=== PATIENT | female | born 1975 | race Caucasian/White ===

== ENCOUNTER 2018-07-30 18:54 | Emergency (ER) | payer MEDICAID, OTHER ==
[2018-07-30] MEDS ORDERED: Norco 10/325 MG Tablet PO ONE (19:14)
--- NOTE | 2018-07-30 19:22 | ERPHSYRPT ---
- History of Present Illness Time Seen by Provider: 07/30/18 19:05 Source: patient Exam Limitations: clinical condition Physician History: PATIENT STATES AFTER PLACING RIGHT HAND TO CLEAN GLASS MUG SUSTAINED LACERATION TO RIGHT FINGER UPON BREAKING GLASS. DENIES NUMBNESS, TINGING IN DIGIT. Occurred: just prior to arrival Method of Injury: incised Quality: constant Severity of Pain-Max: moderate Severity of Pain-Current: moderate Extremities Pain Location: 5th finger: right Modifying Factors: Improves With: movement Associated Symptoms: none Allergies/Adverse Reactions: No Known Drug Allergies Allergy (Verified 08/07/15 09:19) Hx Tetanus, Diphtheria Vaccination/Date Given: No Hx Influenza Vaccination/Date Given: No Hx Pneumococcal Vaccination/Date Given: No - Review of Systems Constitutional: No Symptoms Musculoskeletal: Injury, Joint Pain, Joint Swelling - Past Medical History Pertinent Past Medical History: No Neurological History: No Pertinent History ENT History: No Pertinent History Cardiac History: No Pertinent History Respiratory History: No Pertinent History Endocrine Medical History: No Pertinent History Musculoskeletal History: No Pertinent History GI Medical History: No Pertinent History History: No Pertinent History Psycho-Social History: No Pertinent History Female Reproductive Disorders: Other - Past Surgical History Past Surgical History: Yes Neuro Surgical History: No Pertinent History Cardiac: No Pertinent History Respiratory: No Pertinent History Gastrointestinal: No Pertinent History Genitourinary: No Pertinent History Musculoskeletal: No Pertinent History Female Surgical History: Section Other Surgical History: PRECLAMPSIA WIHT - Social History Smoking Status: Current every day smoker How long have you smoked: 15 Exposure to second hand smoke: Yes Drug Use: none Patient Lives Alone: No - Female History Hx Now: No - Nursing Vital Signs Nursing Vital Signs: Initial Vital Signs Temperature 98.0 F 07/30/18 19:09 Pulse Rate 80 07/30/18 19:09 Respiratory Rate 17 07/30/18 19:09 Blood Pressure 152/97 07/30/18 19:09 O2 Sat by Pulse Oximetry 100 07/30/18 19:09 Pain Scale Pain Intensity 6 - Physical Exam General Appearance: no apparent distress Hand Exam: laceration (THERE IS A L-SHAPED 3CM LACERATION DORSUM RIGHT 5TH MCP JOINT RADIAL ASPECT, THERE IS FULL RANGE OF MOTION MCP,PIP AND DIP JOINTS, SENSATION INTACT TO LIGHT TOUCH AND PINPRICK), soft tissue tenderness (NO EVIDENCE OF FOREIGN BODY OR TENDON INVOLVEMENT) SpO2 Interpretation: normal SpO2: 98 Procedures - Laceration/Wound Repair Right Finger Wound Location: Right (5TH METACARPAL) Wound Length (cm): 3 Wound's Depth, Shape: flap Wound Explored: clean Irrigated: Yes Hibiclens Prep: Yes Anesthesia: local, 2% Lidocaine Volume Anesthetic (ccs): 6 Wound Repaired With: sutures Suture Size/Type: 4-0, ethilon Number of Sutures: 9 Layer Closure?: No Sterile Dressing Applied?: Yes Splint Applied?: Yes Type of Splint Applied: ALUMINUM FINGER SPLINT - Radiology Exams Right Hand X-ray Interpretation: Interpreted by me (NO EVIDENCE OF FRACTURE OR RADIO-PAQUE FOREIGN BODY) Ordered Tests: Active Orders 24 hr Category Date Time Status HAND (MINIMUM 3 VIEWS) Stat Exams 07/30/18 19:15 Taken Medication Summary Discontinued Medications Generic Name Dose Route Start Last Admin Trade Name Freq PRN Reason Stop Dose Admin Hydrocodone Bitart/Acetaminophen 1 tab 07/30/18 19:14 07/30/18 19:34 [place] 10/325 Mg Tablet PO 07/30/18 19:15 1 tab STAT ONE Administration Hydrocodone Bitart/Acetaminophen Confirm 07/30/18 19:33 [place] 10/325 Mg Tablet Administered 07/30/18 19:34 Dose 1 tab .ROUTE .STK-MED ONE Cephalexin HCl 500 mg 07/30/18 20:15 Keflex 500 Mg PO 07/30/18 20:16 STAT ONE Diphtheria/Tetanus/Acell Pertussis 0.5 ml 07/30/18 19:45 07/30/18 19:46 Adacel Vial IM 07/30/18 19:46 0.5 ml .ONCE ONE Administration Lidocaine HCl 5 ml 07/30/18 19:58 Xylocaine 2% Hcl 20 Ml Mdv IJ 07/30/18 19:59 STAT ONE - Progress Progress: improved, pain not gone completely Progress Note: 07/30/18 20:19 ADMINISTERED ADACEL 0.5ML IM, KEFLEX 500MG, AND NORCO 10/325 ORALL, APPLICATION DRESSING AND FINGER SPLINT Counseled pt/family regarding: diagnosis, need for follow-up - Departure Departure Disposition: Home Clinical Impression: LACERATION RIGHT INDEX FINGER Condition: Stable Critical Care Time: No Referrals: SIDNEY WARE MD [Primary Care Provider] - Additional Instructions: MAINTAIN ALUMINUM FINGER SPLINT FOR 10 DAYS THEN REMOVE. MAY REMOVE 2-3 TIMES DAILY TO CLEANSE WITH SOAP AND WATER. WATCH FOR SIGNS OF INFECTION REDNESS, SWELLING OR DRAINAGE. TORADOL 10MG EVERY 6 HOURS FOR PAIN NEEDED. ANTIBIOTIC KEFLEX 500MG EVERY 8 HOURS FOR 10 DAYS. HAVE STITCHES REMOVED AT 10 DAYS. Prescriptions: Ketorolac Tromethamine [Toradol] 10 mg PO Q6H PRN PRN #20 tablet PRN Reason: Pain Cephalexin Mh 500 mg [Keflex 500 mg] 500 mg PO TID #30 capsule
[2018-07-30] MEDS ORDERED: Norco 10/325 MG Tablet ONE ×2 (19:33→20:17)
[2018-07-30] MEDS ORDERED: Adacel Vial IM ONE (19:45)
[2018-07-30] MEDS ORDERED: XYLOCAINE 2% HCL 20 ML MDV IJ ONE (19:58)
[2018-07-30] MEDS ORDERED: KEFLEX 500 MG PO ONE (20:15)
[2018-07-30] MEDS ORDERED: NORCO 5/325 MG PO ONE (20:16)
[2018-07-30] MEDS ORDERED: NORCO 5/325 MG ONE (20:22)
[2018-07-30] MEDS ORDERED: KEFLEX 500 MG ONE (20:22)
[2018-07-30 20:32] VITALS: BP 123/95; PULSE 70; O2SAT 97
--- NOTE | 2018-07-31 08:40 | XRAY ---
Indication: Laceration following injury. Comparison: None 3 views of the right hand demonstrates laceration adjacent to the 5th MCP. No other bony, articular, or soft tissue abnormalities.
== END 2018-07-30 20:45 | disposition home or self-care (01) ==
LOC: ED 18:54
DX: S61.210A Laceration without foreign body of right index finger without damage to nail, initial encounter (principal); W25.XXXA Contact with sharp glass, initial encounter
CPT/HCPCS: 12002; 73130; 90471; 90715; 99284; A9270-GY

== ENCOUNTER 2020-12-04 15:52 | Emergency (ER) | payer OTHER ==
--- NOTE | 2020-12-04 17:34 | ERPHSYRPT ---
- History of Present Illness Time Seen by Provider: 12/04/20 16:20 Source: patient Exam Limitations: no limitations Patient Subjective Stated Complaint: pt here for possible foriegn body to right foot 2 weeks ago while walking bear foot, pt is covid positve on friday. Triage Nursing Assessment: pt alert, resp easy, skin w/d/p. has scab to bottom of foot,no reddenss noted Physician History: Patient is a 45-year-old female presents to our ED for evaluation of possible foreign body to her right great toe. Patient has been experiencing a foreign body sensation for approximately 2 weeks. On the plantar surface of her right great toe there is a nodule which she believes could be a foreign body. There is no obvious foreign body on exam. At the webspace of her right great toe there is mild erythema. No lymphangitis. No lymphadenopathy. No open or draining lesions. Patient has been treating this symptom with [id number] topical antibiotic cream. Patient otherwise feels well. Patient declined pain medication. Patient advised that she is Covid positive. However she has minimal symptoms. Patient otherwise healthy. 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 Patient voices no other complaints concerns at this time. Timing/Duration: week(s) (2 weeks ago) Severity: mild Modifying Factors: Improves With: nothing Associated Symptoms: denies symptoms Allergies/Adverse Reactions: No Known Drug Allergies Allergy (Verified 08/07/15 09:19) Hx Tetanus, Diphtheria Vaccination/Date Given: No Hx Influenza Vaccination/Date Given: No Hx Pneumococcal Vaccination/Date Given: No Immunizations Up to Date: Yes Travel Risk - International Travel Have you traveled outside of the country in past 3 weeks: No - Coronavirus Screening Are you exhibiting any of the following symptoms?: No Close contact with a COVID-19 positive Pt in past 14-21 Days: No - Vaccine Status Have you recieved a Covid-19 vaccination: No - Review of Systems Constitutional: No Symptoms, No Fever, No Chills Eyes: No Symptoms Ears, Nose, & Throat: No Symptoms Respiratory: No Symptoms, No Cough, No Dyspnea Cardiac: No Symptoms, No Chest Pain, No Edema, No Syncope Abdominal/Gastrointestinal: No Symptoms, No Abdominal Pain, No Nausea, No Vomiting, No Diarrhea Genitourinary Symptoms: No Symptoms, No Dysuria Musculoskeletal: No Symptoms, No Back Pain, No Neck Pain Skin: No Symptoms, No Rash Neurological: No Symptoms, No Dizziness, No Focal Weakness, No Sensory Changes Psychological: No Symptoms Endocrine: No Symptoms Hematologic/Lymphatic: No Symptoms Immunological/Allergic: No Symptoms All Other Systems: Reviewed and Negative - Past Medical History Pertinent Past Medical History: No Neurological History: No Pertinent History ENT History: No Pertinent History Cardiac History: No Pertinent History Respiratory History: No Pertinent History Endocrine Medical History: No Pertinent History Musculoskeletal History: No Pertinent History GI Medical History: No Pertinent History History: No Pertinent History Psycho-Social History: No Pertinent History Female Reproductive Disorders: Other - Past Surgical History Past Surgical History: Yes Neuro Surgical History: No Pertinent History Cardiac: No Pertinent History Respiratory: No Pertinent History Gastrointestinal: No Pertinent History Genitourinary: No Pertinent History Musculoskeletal: No Pertinent History Female Surgical History: Section Other Surgical History: PRECLAMPSIA WIHT - Social History Smoking Status: Never smoker How long have you smoked: 15 Exposure to second hand smoke: No Drug Use: none Patient Lives Alone: No - Female History Hx Last Menstrual Period: irregular Hx Now: No - Nursing Vital Signs Nursing Vital Signs: Initial Vital Signs Temperature 97.1 F 12/04/20 16:02 Pulse Rate 78 12/04/20 16:02 Respiratory Rate 18 12/04/20 16:02 O2 Sat by Pulse Oximetry 98 12/04/20 16:02 Pain Scale Pain Intensity 5 - Physical Exam General Appearance: no apparent distress, alert Eye Exam: PERRL/EOMI, eyes nml inspection Ears, Nose, Throat Exam: normal ENT inspection, TMs normal, pharynx normal, moist mucous membranes Neck Exam: normal inspection, non-tender, supple, full range of motion Respiratory Exam: normal breath sounds, lungs clear, No respiratory distress Cardiovascular Exam: regular rate/rhythm, normal heart sounds, normal peripheral pulses Gastrointestinal/Abdomen Exam: soft, normal bowel sounds, No tenderness, No mass Back Exam: normal inspection, normal range of motion, No CVA tenderness, No vertebral tenderness Extremity Exam: normal inspection, normal range of motion, pelvis stable, other (Right great toe has a nodule that is reminiscent of a callus at the plantar surface. There is erythema of the right webspace adjacent to the first toe. No lymphangitis. No lymphadenopathy. No fever. The area is not generating heat. No swelling.) Neurologic Exam: alert, oriented x 3, cooperative, normal mood/affect, sensation nml, No motor deficits Skin Exam: normal color, warm, dry, No rash Lymphatic Exam: No adenopathy SpO2 Interpretation: normal SpO2: 98 O2 Delivery: Room Air - Course Nursing assessment & vital signs reviewed: Yes - Radiology Exams Foot X-ray Interpretation: Interpreted by me (No fracture or dislocation. No soft tissue abnormalities. No foreign body observed.) Ordered Tests: Active Orders 24 hr Category Date Time Status FOOT (MINIMUM 3 VIEWS) Stat Exams 12/04/20 16:33 Taken - Progress Progress: improved Progress Note: No obvious foreign body observed on x-ray. No obvious foreign body on exam. Patient referred to podiatry for further evaluation and treatment. Patient declined crutches. Patient has been ambulatory for the 2-week duration of her symptoms. No indication for antibiotics at this time. Will discharge home. [id number] analgesics as needed. Plan of care discussed with patient. She agrees to call podiatry tomorrow for reevaluation. 12/04/20 17:43 Counseled pt/family regarding: lab results, need for follow-up, rad results - Departure Departure Disposition: Home Clinical Impression: Toe pain Condition: Stable Critical Care Time: No Referrals: SIDNEY WARE MD [Primary Care Provider] - YESSI VIVEROS DPM [ACTIVE STAFF] - Additional Instructions: Discharge/Care Plan ANH DOE was seen on 12/04/20 in the Emergency Room. The patient was counseled regarding Diagnosis,Lab results, Imaging studies, need for follow up and when to return to the Emergency Room. Prescriptions given: Discharge Note I have spoken with the patient and/or caregivers. I have explained the patient's condition, diagnosis and treatment plan based on the information available to me at this time. I have answered the patient's and/or caregiver's questions and addressed any concerns. The patient and/or caregivers have as good understanding of the patient's diagnosis, condition and treatment plan as can be expected at this point. The vital signs have been stable. The patient's condition is stable and appropriate for discharge from the emergency department. The patient will pursue further outpatient evaluation with the primary care physician or other designated or consulting physician as outlined in the discharge instructions. The patient and/or caregivers are agreeable to this plan of care and follow-up instructions have been explained in detail. The patient and/or caregivers have received these instruction. The patient/and or caregivers are aware that any significant change in condition or worsening of symptoms should prompt an immediate return to this or the closest emergency department or call 911.
--- NOTE | 2020-12-04 17:42 | XRAY ---
Exam: 3 view right foot series from 12/04/2020. Comparison: None. Indication: Possible foreign body in first digit, patient stepped on "something" a couple weeks ago. Findings: AP, oblique, and lateral radiographs of the right foot were obtained. I see no acute right foot fracture or dislocation. I see a couple subtle soft tissue densities overlying the lateral aspect of the proximal right great toe, best seen on the AP and oblique images. Correlate clinically. The joint spaces appear unremarkable. It appears that there is a soft tissue web between the base of the right second and third toes, and to a lesser extent, between the base of the right third and fourth toes. No other significant bone or joint abnormality of the right foot is seen. There is a normal plantar arch. Impression: 1. There are a couple tiny nonspecific soft tissue densities overlying the lateral aspect of the proximal right great toe of unclear etiology. Correlate clinically. 2. No fracture, dislocation, or other significant bone or joint abnormality of the right foot is seen. 3. Soft tissue webbing between the base of the right second and third toes, and to a lesser extent, between the base of the right third and fourth toes.
[2020-12-04 18:01] VITALS: O2SAT 100
[2020-12-04 18:31] VITALS: BP 156/100; PULSE 78
== END 2020-12-04 18:30 | disposition home or self-care (01) ==
LOC: ED 15:52
DX: M79.674 Pain in right toe(s) (principal)
CPT/HCPCS: 73630; 99283

== ENCOUNTER 2021-07-05 15:31 | Emergency (ER) | payer OTHER ==
[2021-07-05 16:13] LABS: INR 0.97 (0.8-3.0); PROTIME 11.5 SECONDS (9.4-12.5)
[2021-07-05 16:16] LABS: PTT 28.9 SECONDS (25.1-36.5)
[2021-07-05 16:28] LABS: ALKALINE PHOSPHATASE 92 U/L (38-126); ANION GAP 11.4 MEQ/L (5-15); BLOOD UREA NITROGEN 16 mg/dL (7-17); CHLORIDE 106 mmol/L (98-107); Calcium 9.6 mg/dL (8.4-10.2); Carbon Dioxide 24 mmol/L (22-30); Creatinine 1 0.66 mg/dL (0.52-1.04); EST GLOMERULAR FILTRATION RATE > 60.0 ML/MIN; Glucose 97 mg/dL (74-106); NT PRO BNP 51.6 pg/mL (0-450); Potassium 4.4 mmol/L (3.5-5.1); SGOT/AST 31 U/L (14-36); SGPT/ALT 27 U/L (0-35); SODIUM 137 mmol/L (137-145); Total Protein 6.8 g/dL (6.3-8.2)
--- NOTE | 2021-07-05 16:28 | XRAY ---
Indication: Dyspnea and fatigue. Nonproductive cough. Comparison: September 15, 2008. Portable chest again demonstrates normal heart, lungs, and bony thorax with incidental tiny left base calcified granuloma
[2021-07-05 16:33] LABS: INFLUENZA A NEGATIVE (NEGATIVE); INFLUENZA B NEGATIVE (NEGATIVE)
[2021-07-05 16:35] LABS: COVID AG -BINAX NOW RAPID TEST NEGATIVE (NEGATIVE)
[2021-07-05 16:37] LABS: Absolute Neutrophil Ct (ANC) 3.45 (1.4-6.9); Basophil (Absolute #) 0.05 (0-0.4); Eosinophil % 5.1 % (0.00-5.0); Eosinophil (Absolute #) 0.32 (0-0.5); Hematocrit 45.8 % (35-47); Hemoglobin 15.7 gm/dl (12.0-16.0); Lymphocyte (Absolute #) 1.83 (1.0-4.6); Lymphocytes % 28.9 % (24.0-44.0); Mean Cell Volume 94.2 fl (78-100); Mean Corpuscular Hemoglobin 32.3 pg (26-32); Mean Corpuscular Hgb Concent. 34.3 g/dl (32-36); Mean Platelet Volume 10.6 fl (7.5-11.0); Monocyte (Absolute #) 0.68 (0.0-1.3); Monocytes % 10.7 % (0.0-12.0); Neutrophil % 54.5 % (36.0-66.0); Platelet Count 395 K/mm3 (150-450); Red Blood Count 4.86 M/mm3 (4.1-5.4); Red Cell Distribution Width 14.3 % (11.5-14.0); White Blood Count 6.3 K/mm3 (4.0-10.5)
--- NOTE | 2021-07-05 17:15 | ERPHSYRPT ---
- History of Present Illness Source: patient Exam Limitations: no limitations Patient Subjective Stated Complaint: SOB Triage Nursing Assessment: Patient ambulated back to ED and transferred self to bed. Patient A+O X3. Patient's skin pink, warm and dry. Patient complains of increased SOB for the past two weeks that has gotten worse today. Patient's lungs clear a/p nga. No edema noted. Patient also complains of intermittent headaches, but currently denies pain or discomfort. This assessment was completed per Abby Oconnell RN on Renuka Nichols's account. Physician History: 45 yo wf w dyspnea x 2 wks. Pt denies chest pain/cough/fever/melena/hematochezi a. Dyspnea worse upon exertion. Timing/Duration: other (2 wks) Severity of Dyspnea-Max: moderate Severity of Dyspnea-Current: mild Possible Cause: no prior episodes Modifying Factors: Improves With: activity Associated Symptoms: No constant, No intermittent, No anxiety, No cough, No chest pain/discomfort, No edema, No fever, No insomnia, No loss of appetite, No lightheadedness, No wheezing, No weakness, No ankle swelling, No chills, No hemoptysis, No calf pain, No dizziness, No heaviness, No heart racing, No lightheadedness, No leg swelling, No muscle spasms feet, No muscle spasms hands, No painful breathing, No productive cough, No sweating, No tightness Allergies/Adverse Reactions: No Known Drug Allergies Allergy (Verified 07/05/21 15:33) Hx Tetanus, Diphtheria Vaccination/Date Given: No Hx Influenza Vaccination/Date Given: No Hx Pneumococcal Vaccination/Date Given: No Immunizations Up to Date: Yes Travel Risk - International Travel Have you traveled outside of the country in past 3 weeks: No - Coronavirus Screening Are you exhibiting any of the following symptoms?: No Close contact with a COVID-19 positive Pt in past 14-21 Days: No - Vaccine Status Have you recieved a Covid-19 vaccination: No - Review of Systems Constitutional: No Symptoms Eyes: No Symptoms Ears, Nose, & Throat: No Symptoms Respiratory: No Symptoms, Dyspnea, Dyspnea on Exertion ([place]) Cardiac: No Symptoms Abdominal/Gastrointestinal: No Symptoms Genitourinary Symptoms: No Symptoms Musculoskeletal: No Symptoms Skin: No Symptoms Neurological: No Symptoms Psychological: No Symptoms Endocrine: No Symptoms, Excessive Sweating Immunological/Allergic: No Symptoms - Past Medical History Pertinent Past Medical History: No Neurological History: No Pertinent History ENT History: No Pertinent History Cardiac History: No Pertinent History Respiratory History: No Pertinent History Endocrine Medical History: No Pertinent History Musculoskeletal History: No Pertinent History GI Medical History: No Pertinent History History: No Pertinent History Psycho-Social History: No Pertinent History Female Reproductive Disorders: Other - Past Surgical History Past Surgical History: Yes Neuro Surgical History: No Pertinent History Cardiac: No Pertinent History Respiratory: No Pertinent History Gastrointestinal: No Pertinent History Genitourinary: No Pertinent History Musculoskeletal: No Pertinent History Female Surgical History: Section Other Surgical History: PRECLAMPSIA WIHT - Social History Smoking Status: Current every day smoker How long have you smoked: 15 Exposure to second hand smoke: Yes Drug Use: none Patient Lives Alone: No Significant Family History: no pertinent family hx - Female History Hx Last Menstrual Period: menopausal Hx Now: No - Nursing Vital Signs Nursing Vital Signs: Initial Vital Signs Temperature 98.0 F 07/05/21 15:34 Pulse Rate 97 H 07/05/21 15:34 Respiratory Rate 18 07/05/21 15:34 Blood Pressure 159/114 07/05/21 15:34 O2 Sat by Pulse Oximetry 98 07/05/21 15:34 Pain Scale Pain Intensity 0 Hypertensive - Physical Exam General Appearance: no apparent distress, anxiety Eye Exam: PERRL/EOMI, eyes nml inspection Ears, Nose, Throat Exam: hearing grossly normal, normal ENT inspection, normal pharynx Neck Exam: normal inspection, non-tender, supple, full range of motion, No Brudzinski, No Kernig's, No meningismus Respiratory Exam: normal breath sounds, lungs clear, airway intact, No respiratory distress Cardiovascular/Chest Exam: normal heart sounds, regular rate/rhythm, normal peripheral pulses, No murmur, No edema Abdominal/Gastrointestinal Exam: soft, normal bowel sounds, No tenderness Extremity Exam: non-tender, normal range of motion, normal inspection, normal capillary refill, no calf tenderness, no pedal edema Peripheral Pulses Exam: carotid (R): 2+, carotid (L): 2+ Neurologic Exam: alert, oriented x 3, cooperative, 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, normal mood/affect, nml cerebellar function, nml station & gait, sensation nml, No motor deficits, No sensory deficit Skin Exam: normal color, warm, dry, No rash Lymphatic Exam: No adenopathy SpO2 Interpretation: normal SpO2: 95 - Course Nursing assessment & vital signs reviewed: Yes EKG Interpreted by Me: RATE (NSR/R81/Normal QT-QTc/No acute ST segment changes) - Radiology Exams Chest X-ray Interpretation: Discussed w/ radiologist (CXR neg per Rad) Ordered Tests: Active Orders 24 hr Category Date Time Status EKG-ER Only STAT Care 07/05/21 18:07 Completed IV Insertion STAT Care 07/05/21 18:07 Completed CHEST 1 VIEW (PORTABLE) Stat Exams 07/05/21 16:06 Completed CBC W DIFF Stat Lab 07/05/21 16:22 Completed CMP Stat Lab 07/05/21 16:22 Completed COVID AG-BINAX NOW RAPID TEST Stat Lab 07/05/21 16:15 Completed INFLUENZA A+B SARAH Stat Lab 07/05/21 16:15 Completed NT PRO BNP Stat Lab 07/05/21 16:22 Completed PROTIME WITH INR Stat Lab 07/05/21 16:05 Completed PTT Stat Lab 07/05/21 16:05 Completed TROPONIN Q3H Lab 07/05/21 16:22 Completed Lab/Rad Data: Laboratory Result Diagrams 07/05/21 16:22 07/05/21 16:22 Laboratory Results 07/05/21 07/05/21 07/05/21 Range/Units 16:22 16:22 16:22 WBC 6.3 (4.0-10.5) K/mm3 RBC 4.86 (4.1-5.4) M/mm3 Hgb 15.7 (12.0-16.0) gm/dl Hct 45.8 (35-47) % MCV 94.2 (78-100) fl MCH 32.3 H (26-32) pg MCHC 34.3 (32-36) g/dl RDW 14.3 H (11.5-14.0) % Plt Count 395 (150-450) K/mm3 MPV 10.6 (7.5-11.0) fl Gran % 54.5 (36.0-66.0) % Eos # (Auto) 0.32 (0-0.5) Absolute Lymphs (auto) 1.83 (1.0-4.6) Absolute Monos (auto) 0.68 (0.0-1.3) Lymphocytes % 28.9 (24.0-44.0) % Monocytes % 10.7 (0.0-12.0) % Eosinophils % 5.1 H (0.00-5.0) % Basophils % 0.8 (0.0-0.4) % Absolute Granulocytes 3.45 (1.4-6.9) Basophils # 0.05 (0-0.4) PT (9.4-12.5) SECONDS INR (0.8-3.0) APTT (25.1-36.5) SECONDS Sodium 137 (137-145) mmol/L Potassium 4.4 (3.5-5.1) mmol/L Chloride 106 (98-107) mmol/L Carbon Dioxide 24 (22-30) mmol/L Anion Gap 11.4 (5-15) MEQ/L BUN 16 (7-17) mg/dL Creatinine 0.66 (0.52-1.04) mg/dL Estimated GFR > 60.0 ML/MIN Glucose 97 (74-106) mg/dL Calcium 9.6 (8.4-10.2) mg/dL Total Bilirubin 0.80 (0.2-1.3) mg/dL AST 31 (14-36) U/L ALT 27 (0-35) U/L Alkaline Phosphatase 92 (38-126) U/L Troponin I < 0.012 (0.000-0.034) ng/mL NT-Pro-B Natriuret Pep 51.6 (0-450) pg/mL Serum Total Protein 6.8 (6.3-8.2) g/dL Albumin 4.0 (3.5-5.0) g/dL Theophylline (10-20) ug/mL Influenza Type A Ag (NEGATIVE) Influenza Type B Ag (NEGATIVE) SARS-CoV-2 Ag (Rapid) (NEGATIVE) 07/05/21 07/05/21 07/05/21 Range/Units 16:15 16:15 16:10 WBC (4.0-10.5) K/mm3 RBC (4.1-5.4) M/mm3 Hgb (12.0-16.0) gm/dl Hct (35-47) % MCV (78-100) fl MCH (26-32) pg MCHC (32-36) g/dl RDW (11.5-14.0) % Plt Count (150-450) K/mm3 MPV (7.5-11.0) fl Gran % (36.0-66.0) % Eos # (Auto) (0-0.5) Absolute Lymphs (auto) (1.0-4.6) Absolute Monos (auto) (0.0-1.3) Lymphocytes % (24.0-44.0) % Monocytes % (0.0-12.0) % Eosinophils % (0.00-5.0) % Basophils % (0.0-0.4) % Absolute Granulocytes (1.4-6.9) Basophils # (0-0.4) PT (9.4-12.5) SECONDS INR (0.8-3.0) APTT (25.1-36.5) SECONDS Sodium (137-145) mmol/L Potassium (3.5-5.1) mmol/L Chloride (98-107) mmol/L Carbon Dioxide (22-30) mmol/L Anion Gap (5-15) MEQ/L BUN (7-17) mg/dL Creatinine (0.52-1.04) mg/dL Estimated GFR ML/MIN Glucose (74-106) mg/dL Calcium (8.4-10.2) mg/dL Total Bilirubin (0.2-1.3) mg/dL AST (14-36) U/L ALT (0-35) U/L Alkaline Phosphatase (38-126) U/L Troponin I (0.000-0.034) ng/mL NT-Pro-B Natriuret Pep (0-450) pg/mL Serum Total Protein (6.3-8.2) g/dL Albumin (3.5-5.0) g/dL Theophylline < 1.0 L (10-20) ug/mL Influenza Type A Ag NEGATIVE (NEGATIVE) Influenza Type B Ag NEGATIVE (NEGATIVE) SARS-CoV-2 Ag (Rapid) NEGATIVE (NEGATIVE) 07/05/21 Range/Units 16:05 WBC (4.0-10.5) K/mm3 RBC (4.1-5.4) M/mm3 Hgb (12.0-16.0) gm/dl Hct (35-47) % MCV (78-100) fl MCH (26-32) pg MCHC (32-36) g/dl RDW (11.5-14.0) % Plt Count (150-450) K/mm3 MPV (7.5-11.0) fl Gran % (36.0-66.0) % Eos # (Auto) (0-0.5) Absolute Lymphs (auto) (1.0-4.6) Absolute Monos (auto) (0.0-1.3) Lymphocytes % (24.0-44.0) % Monocytes % (0.0-12.0) % Eosinophils % (0.00-5.0) % Basophils % (0.0-0.4) % Absolute Granulocytes (1.4-6.9) Basophils # (0-0.4) PT 11.5 (9.4-12.5) SECONDS INR 0.97 (0.8-3.0) APTT 28.9 (25.1-36.5) SECONDS Sodium (137-145) mmol/L Potassium (3.5-5.1) mmol/L Chloride (98-107) mmol/L Carbon Dioxide (22-30) mmol/L Anion Gap (5-15) MEQ/L BUN (7-17) mg/dL Creatinine (0.52-1.04) mg/dL Estimated GFR ML/MIN Glucose (74-106) mg/dL Calcium (8.4-10.2) mg/dL Total Bilirubin (0.2-1.3) mg/dL AST (14-36) U/L ALT (0-35) U/L Alkaline Phosphatase (38-126) U/L Troponin I (0.000-0.034) ng/mL NT-Pro-B Natriuret Pep (0-450) pg/mL Serum Total Protein (6.3-8.2) g/dL Albumin (3.5-5.0) g/dL Theophylline (10-20) ug/mL Influenza Type A Ag (NEGATIVE) Influenza Type B Ag (NEGATIVE) SARS-CoV-2 Ag (Rapid) (NEGATIVE) - Progress Progress Note: 07/05/21 19:16 Pt eating [employer] before discharge Pt wo chest pain and with good sats during entire stay Counseled pt/family regarding: lab results, diagnosis, need for follow-up, rad results - Departure Departure Disposition: Home Clinical Impression: Dyspnea, Hypertension Condition: Stable Critical Care Time: No Referrals: SIDNEY WARE MD [Primary Care Provider] - Follow up/PCP as directed Instructions: High Blood Pressure (DC), Shortness of Breath (Dyspnea) (DC) Additional Instructions: Follow up with your family MD in 1-2 days Return to ER for worsening shortness of breath, chest pain, cough, or temperature greater than 100.5 Start Norvasc once a day Prescriptions: Amlodipine Besylate 5 mg [Norvasc 5 mg] 5 mg PO DAILY #30 tablet
[2021-07-05 18:16] VITALS: BP 147/103; PULSE 68
[2021-07-05 19:18] VITALS: O2SAT 95
== END 2021-07-05 18:20 | disposition home or self-care (01) ==
LOC: ED 15:31
DX: R06.00 Dyspnea, unspecified (principal); I10 Essential (primary) hypertension; Z72.0 Tobacco use
CPT/HCPCS: 36000; 36415; 71045; 80053; 80198; 83880; 84484; 85025; 85610; 85730; 87400; 93005; 99000; 99284

== ENCOUNTER 2022-03-05 10:10 | Emergency (ER) | payer OTHER ==
[2022-03-05 10:29] VITALS: O2SAT 98
--- NOTE | 2022-03-05 10:48 | ERPHSYRPT ---
- History of Present Illness Source: patient Exam Limitations: other (Poor historian) Patient Subjective Stated Complaint: PT states "I have not felt well for the past 4 days and I had a fever last night and my left hip has been bothering me as well." Triage Nursing Assessment: Pt presented alert and oriented X 3, skin pwd. pt ambulates with a slight limp. Pt restless and able to sepak in clear full setences. Physician History: 46 yo wf w nonproductive cough x 4 days. Pt states that she has had a subjective fever/mild ST/Mild nausea/Mild vomiting. She denies otalgia/chest pain/abdominal pain/dysuria/hematuria. Pt smokes less than 1ppd. She also complains of L greater trochanter-L inguinal pain x 4 days which is worse w movement and weight bearing. She denies injury but states that she was playing in the yard w her Pitbull and might have strained something. Pt states that she took some of her mothers morphine to help her w the pain. Timing/Duration: other (4 days) Severity: mild Modifying Factors: Improves With: movement Associated Symptoms: nausea, vomiting, cough, fever, No abdominal pain, No shortness of breath, No heartburn, No diaphoresis, No chills, No chest pain, No headaches, No loss of appetite, No malaise, No rash, No syncope, No seizure, No weakness Allergies/Adverse Reactions: No Known Drug Allergies Allergy (Verified 07/05/21 15:33) Home Medications: Bupropion HCl Xl 150 mg [Wellbutrin XL 150 MG] 150 mg PO DAILY 03/05/22 [History] Hx Tetanus, Diphtheria Vaccination/Date Given: No Hx Influenza Vaccination/Date Given: No Hx Pneumococcal Vaccination/Date Given: No Immunizations Up to Date: Yes Travel Risk - International Travel Have you traveled outside of the country in past 3 weeks: No - Coronavirus Screening Are you exhibiting any of the following symptoms?: Yes Symptoms: Fever, Cough: New Onset Close contact with a COVID-19 positive Pt in past 14-21 Days: No - Vaccine Status Have you recieved a Covid-19 vaccination: No - Review of Systems Constitutional: No Symptoms, Fever, Lethargy, Malaise Eyes: No Symptoms Ears, Nose, & Throat: No Symptoms Respiratory: No Symptoms, Cough Cardiac: No Symptoms Abdominal/Gastrointestinal: No Symptoms, Nausea, Vomiting Genitourinary Symptoms: No Symptoms Musculoskeletal: No Symptoms, Joint Pain Skin: No Symptoms Neurological: No Symptoms Psychological: No Symptoms Endocrine: No Symptoms Hematologic/Lymphatic: No Symptoms Immunological/Allergic: No Symptoms - Past Medical History Pertinent Past Medical History: No Neurological History: No Pertinent History ENT History: No Pertinent History Cardiac History: No Pertinent History Respiratory History: No Pertinent History Endocrine Medical History: No Pertinent History Musculoskeletal History: No Pertinent History GI Medical History: No Pertinent History History: No Pertinent History Psycho-Social History: No Pertinent History Female Reproductive Disorders: Other - Past Surgical History Past Surgical History: Yes Neuro Surgical History: No Pertinent History Cardiac: No Pertinent History Respiratory: No Pertinent History Gastrointestinal: No Pertinent History Genitourinary: No Pertinent History Musculoskeletal: No Pertinent History Female Surgical History: Section Other Surgical History: PRECLAMPSIA WIHT - Social History Smoking Status: Current every day smoker How long have you smoked: 15 Exposure to second hand smoke: Yes Drug Use: none Patient Lives Alone: No Significant Family History: no pertinent family hx - Female History Hx Last Menstrual Period: menopause Hx Now: No - Nursing Vital Signs Nursing Vital Signs: Initial Vital Signs Temperature 98.1 F 03/05/22 10:26 Pulse Rate 88 03/05/22 10:26 Respiratory Rate 20 03/05/22 10:26 Blood Pressure 198/90 03/05/22 10:26 O2 Sat by Pulse Oximetry 98 03/05/22 10:26 Pain Scale Pain Intensity 7 Hypertensive - Physical Exam General Appearance: no apparent distress Eye Exam: PERRL/EOMI, eyes nml inspection Ears, Nose, Throat Exam: normal ENT inspection, TMs normal, pharyngeal erythema (Mild) Neck Exam: normal inspection, non-tender, supple, full range of motion, No meningismus, No mass, No Brudzinski, No Kernig's Respiratory Exam: normal breath sounds, lungs clear, airway intact Cardiovascular Exam: regular rate/rhythm, normal heart sounds, normal peripheral pulses, capillary refill <2 sec, No murmur Gastrointestinal/Abdomen Exam: soft, normal bowel sounds, No tenderness Back Exam: normal inspection, normal range of motion, No CVA tenderness, No vertebral tenderness Extremity Exam: pelvis stable, other (TTP L greater trochanter and L inguinal crease area/No mass) Neurologic Exam: alert, oriented x 3, cooperative, 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, normal mood/affect, sensation nml Skin Exam: normal color, warm, dry, No rash Lymphatic Exam: No adenopathy SpO2 Interpretation: normal SpO2: 98 O2 Delivery: Room Air - Radiology Exams Chest X-ray Interpretation: Discussed w/ radiologist (CXR neg per Rad) - CT Exams Other CT Interpretation: Discussed w/radiologist (CT pelvis neg) Ordered Tests: Active Orders 24 hr Category Date Time Status CHEST 1 VIEW (PORTABLE) Stat Exams 03/05/22 10:41 Completed PELVIS WITHOUT CONTRAST [CT] Stat Exams 03/05/22 11:01 Completed UA W/RFX CULTURE Stat Lab 03/05/22 10:47 Completed Medication Summary Discontinued Medications Generic Name Dose Route Start Last Admin Trade Name Freq PRN Reason Stop Dose Admin Ketorolac Tromethamine 15 mg 03/05/22 11:44 03/05/22 11:50 Ketorolac Tromethamine 30 Mg/Ml Inj IM 03/05/22 11:45 15 mg STAT ONE Administration Ketorolac Tromethamine Confirm 03/05/22 11:44 Ketorolac Tromethamine 30 Mg/Ml Inj Administered 03/05/22 11:45 Dose 30 mg .ROUTE .STK-MED ONE Lab/Rad Data: Laboratory Results 03/05/22 03/05/22 03/05/22 Range/Units 10:50 10:50 10:47 Urinalys Dipstick Clnc MAIN LAB Urine Color YELLOW (YELLOW) Urine Appearance CLEAR (CLEAR) Urine pH 6.0 (5-6) Ur Specific [place] >=1.030 A (1.005-1.025) POC Urine Protein Conf 100 A (Negative) Urine Ketones TRACE A (NEGATIVE) Urine Nitrite NEGATIVE (NEGATIVE) Urine Bilirubin SMALL A (NEGATIVE) Urine Urobilinogen 0.2 (0-1) mg/dL Urine Leukocytes NEGATIVE (NEGATIVE) Urine WBC (Auto) 3-5 A (0-5) /HPF Urine RBC (Auto) NONE SEEN (0-2) /HPF U Hyaline Cast (Auto) 11-25 A (0-2) /LPF U Epithel Cells (Auto) RARE (FEW) /HPF Urine Bacteria (Auto) RARE (NEGATIVE) /HPF Urine RBC NEGATIVE (0-5) Jah/ul Urine Mucus (Auto) MANY A (NEGATIVE) /HPF Ur Culture Indicated? NO Urine Glucose NEGATIVE (NEGATIVE) mg/dL Influenza Type A Ag NEGATIVE (NEGATIVE) Influenza Type B Ag NEGATIVE (NEGATIVE) RSV (PCR) NEGATIVE (Negative) SARS-CoV-2 (PCR) NEGATIVE (NEGATIVE) Group A Strep Antibody NOT DETECTED (NEGATIVE) - Progress Progress Note: 03/05/22 11:45 15mg IM Toradol Counseled pt/family regarding: lab results, diagnosis, need for follow-up, rad results - Departure Departure Disposition: Home Clinical Impression: Viral URI with cough, Hip pain Condition: Stable Critical Care Time: No Referrals: SINDEY WARE MD [ACTIVE STAFF] - Follow up/PCP as directed Instructions: Viral Upper Respiratory Infection, Adult (DC), Hip Pain (DC) Additional Instructions: Follow up with your family MD Return to ER for worsening cough, increasing shortness of breath, or temperature greater than 100.5 Toradol as needed for hip pain, also heat, rest, and massage Prescriptions: Ketorolac Trometh 10 mg Tab [TORAdol 10 MG TABLET] 10 mg PO TID PRN PRN #10 tablet PRN Reason: Pain
[2022-03-05 11:02] LABS: Bacteria RARE /HPF (NEGATIVE); Epithelial Cells RARE /HPF (FEW); Mucus MANY /HPF (NEGATIVE)
[2022-03-05 11:08] LABS: Appearance CLEAR (CLEAR); Bilirubin SMALL (NEGATIVE); Glucose NEGATIVE (NEGATIVE); Ketones TRACE (NEGATIVE); Nitrite NEGATIVE (NEGATIVE); Protein,Urine Dip 100 (Negative); RBC NEGATIVE Ery/ul (0-5); Specific Gravity >=1.030 (1.005-1.025); Urobilinogen 0.2 mg/dL (0-1)
[2022-03-05 11:09] LABS: Dipstick done @ ? MAIN LAB; RBC NONE SEEN /HPF (0-2)
[2022-03-05 11:10] LABS: Urine Cultured Indicated? NO
--- NOTE | 2022-03-05 11:13 | XRAY ---
Indication: Cough. Comparison: July 05, 2021 Portable chest again demonstrates normal heart, lungs, and bony thorax with incidental left lung base calcified granuloma.
--- NOTE | 2022-03-05 11:21 | XRAY ---
Indication: Left hip/inguinal pain. Multiple contiguous axial images obtained through the pelvis with special attention to the osseous structures appear sagittal and coronal reformatted images obtained. Comparison: None No acute fracture, dislocation, or suspicious bony lesions. SI joints are bilaterally symmetric. No ventral or inguinal hernias. Pelvis demonstrates incidental phleboliths. No free fluid/air. A few subcentimeter bilateral inguinal lymph nodes. No pathologic lymphadenopathy. Major arteries/veins are normal in course and caliber. Visualized bowel loops, bladder, and uterus are unremarkable for noncontrast exam. Impression: Normal CT pelvis without contrast exam.
[2022-03-05 11:36] LABS: INFLUENZA A NEGATIVE (NEGATIVE); INFLUENZA B NEGATIVE (NEGATIVE); RESPIRATORY SYNCTIAL VIRUS NEGATIVE (Negative); SARS-CoV-2 Xpert Express NEGATIVE (NEGATIVE)
[2022-03-05] MEDS ORDERED: TORAdol 30 mg Injection IM ONE (11:44)
[2022-03-05] MEDS ORDERED: TORAdol 30 mg Injection ONE (11:44)
[2022-03-05 11:45] VITALS: BP 188/94; PULSE 75
== END 2022-03-05 11:56 | disposition home or self-care (01) ==
LOC: ED 10:10
DX: R05.1 Acute cough (principal); J06.9 Acute upper respiratory infection, unspecified; M25.552 Pain in left hip; R50.9 Fever, unspecified; J02.9 Acute pharyngitis, unspecified; R11.2 Nausea with vomiting, unspecified; Z72.0 Tobacco use; Z79.899 Other long term (current) drug therapy; Z28.310 Unvaccinated for COVID-19
CPT/HCPCS: 0241U; 71045; 72192; 81015; 87651; 96372; 99284; J1885

== ENCOUNTER 2024-03-09 19:25 | Emergency (ER) | payer MEDICAID ==
[2024-03-09 19:45] LABS: Absolute Neutrophil Ct (ANC) 3.74 x10^3/uL (1.56-6.13); BASOPHIL % 1.4 % (0.1-1.2); Eosinophil % 2.9 % (0.7-5.8); Eosinophil (Absolute #) 0.21 x10^3/uL (0.04-0.36); Hematocrit 43.4 % (34.1-44.9); Hemoglobin 15.2 g/dL (11.2-15.7); IMMATURE GRAN # 0.02 x10^3u/L (0.001-0.031); IMMATURE GRAN % 0.3 % (0.001-0.429); Lymphocyte (Absolute #) 2.66 x10^3/uL (1.18-3.74); Lymphocytes % 36.9 % (19.3-51.7); Mean Corpuscular Hemoglobin 34.3 pg (25.6-32.2); Mean Platelet Volume 9.8 fL (9.4-12.3); Monocyte (Absolute #) 0.48 x10^3/uL (0.24-0.86); Monocytes % 6.7 % (4.7-12.5); Neutrophil % 51.8 % (34.0-71.1); Platelet Count 344 x10^3/uL (182-369); Red Blood Count 4.43 x10^6/uL (3.93-5.22); Red Cell Distribution Width 11.4 % (11.7-14.4); White Blood Count 7.2 x10^3/uL (3.98-10.04)
[2024-03-09] MEDS ORDERED: BABY ASPIRIN 81 MG CHEW ONE (19:45)
[2024-03-09] MEDS: BABY ASPIRIN 81 MG CHEW PO ONE (19:45)
[2024-03-09 19:47] VITALS: TEMP 98.8
--- NOTE | 2024-03-09 19:55 | ERPHSYRPT ---
- History of Present Illness Time Seen by Provider: 03/09/24 19:52 Source: patient Exam Limitations: no limitations Patient Subjective Stated Complaint: Chest pain for last few months that is getting worse today. States pain is a dull ache under left breast and goes into her back. Denies any shortness of breath. Triage Nursing Assessment: Haleigh presents with chest pain for last few months that is progressively getting worse in the last 24hrs. Denies any N/V/D. No SOB. States pain is a dull ache under the left breast that goes into her back area. No Aspirin in last 24hrs. Physician History: 48-year-old female current smoker history of hypercholesterolemia and hypertension. Patient states that she has consciously decided not to medicate herself to treat the hypertension and hypercholesterolemia. Patient's left lower chest pain has been ongoing for the past 3 months. She has not seen her primary care provider regarding this symptom. Patient reports that the pain is gotten progressively worse. Patient states is gotten worse especially over the last 24 hours. No associated nausea vomiting no diarrhea no diaphoresis. Patient denies trauma. No fever. Symptoms are moderate in intensity. No specific worsening or improving factors. Patient declined pain medication. Patient does admit that she is under significant stress secondary to personal life issues. Mother at bedside. They voiced no other complaints or concerns at this time. Portions of this note were created with voice recognition technology. There may be grammatical, spelling, punctuation or sound alike errors Timing/Duration: week(s) (3 months) Severity: moderate Modifying Factors: Improves With: nothing Associated Symptoms: denies symptoms Allergies/Adverse Reactions: No Known Drug Allergies Allergy (Verified 03/09/24 20:14) Home Medications: No Reportable Medications [No Reported Medications] 03/09/24 [History] Hx Tetanus, Diphtheria Vaccination/Date Given: Yes Hx Influenza Vaccination/Date Given: No Hx Pneumococcal Vaccination/Date Given: No Immunizations Up to Date: Yes Travel Risk - International Travel Have you traveled outside of the country in past 3 weeks: No - Emerging Infectious Disease Are you exhibiting symptoms associated with any current EIDs: No - Review of Systems Constitutional: No Symptoms, No Fever, No Chills Eyes: No Symptoms Ears, Nose, & Throat: No Symptoms Respiratory: No Symptoms, No Cough, No Dyspnea Cardiac: No Symptoms, No Chest Pain, No Edema, No Syncope Abdominal/Gastrointestinal: No Symptoms, No Abdominal Pain, No Nausea, No Vomiting, No Diarrhea Genitourinary Symptoms: No Symptoms, No Dysuria Musculoskeletal: No Symptoms, No Back Pain, No Neck Pain Skin: No Symptoms, No Rash Neurological: No Symptoms, No Dizziness, No Focal Weakness, No Sensory Changes Psychological: No Symptoms Endocrine: No Symptoms Hematologic/Lymphatic: No Symptoms Immunological/Allergic: No Symptoms All Other Systems: Reviewed and Negative - Past Medical History Pertinent Past Medical History: No Neurological History: No Pertinent History ENT History: No Pertinent History Cardiac History: No Pertinent History Respiratory History: No Pertinent History Endocrine Medical History: No Pertinent History Musculoskeletal History: No Pertinent History GI Medical History: No Pertinent History History: No Pertinent History Psycho-Social History: No Pertinent History Female Reproductive Disorders: Other - Past Surgical History Past Surgical History: Yes Neuro Surgical History: No Pertinent History Cardiac: No Pertinent History Respiratory: No Pertinent History Gastrointestinal: No Pertinent History Genitourinary: No Pertinent History Musculoskeletal: No Pertinent History Female Surgical History: Section Other Surgical History: PRECLAMPSIA WIHT Significant Family History: no pertinent family hx - Female History Hx Last Menstrual Period: 05/27/13 Hx Now: No - Social History Smoking Status: Current every day smoker How long have you smoked: 15 Exposure to second hand smoke: Yes Drug Use: none Patient Lives Alone: No - Social Determinants of Health Will the patient participate in the screening: Yes Do you worry about a steady place to live?: No Do you have any problems with any of the following?: No known problems In the past 12 months,have you had to go without utilities?: No Transportation Issues: No Has anyone in your support network made you feel unsafe?: No Have you or anyone in your house had to go without enough: No - Nursing Vital Signs Nursing Vital Signs: Initial Vital Signs Temperature 98.8 F 03/09/24 19:26 Pulse Rate 92 H 03/09/24 19:26 Respiratory Rate 20 03/09/24 19:26 Blood Pressure 166/104 03/09/24 19:26 Pain Scale Pain Intensity 4 - Physical Exam General Appearance: no apparent distress, alert Eye Exam: PERRL/EOMI, eyes nml inspection Ears, Nose, Throat Exam: normal ENT inspection, TMs normal, pharynx normal, moist mucous membranes Neck Exam: normal inspection, non-tender, supple, full range of motion Respiratory Exam: normal breath sounds, lungs clear, No respiratory distress Cardiovascular Exam: regular rate/rhythm, normal heart sounds, normal peripheral pulses Gastrointestinal/Abdomen Exam: soft, normal bowel sounds, No tenderness, No mass Back Exam: normal inspection, normal range of motion, No CVA tenderness, No vertebral tenderness Extremity Exam: normal inspection, normal range of motion, pelvis stable Neurologic Exam: alert, oriented x 3, cooperative, normal mood/affect, sensation nml, No motor deficits Skin Exam: normal color, warm, dry, No rash Lymphatic Exam: No adenopathy SpO2 Interpretation: normal SpO2: 98 O2 Delivery: Room Air - Course Nursing assessment & vital signs reviewed: Yes EKG Interpreted by Me: RATE (83), Sinus Rhythm, NORMAL AXIS, NORMAL INTERVALS, NORMAL QRS - Radiology Exams Chest X-ray Interpretation: Interpreted by me (Left lower lung granuloma otherwise no acute findings) Ordered Tests: Active Orders 24 hr Category Date Time Status AMA [Release AMA] OM.NOW Care 03/09/24 22:16 Ordered Supervisor [place] STAT Care 03/09/24 19:39 Active EKG-ER Only STAT Care 03/09/24 19:39 Active IV Insertion STAT Care 03/09/24 19:39 Active Pulse Oximetry (ED) STAT Care 03/09/24 19:39 Active CHEST 1 VIEW (PORTABLE) Stat Exams 03/09/24 20:19 Taken CBC W DIFF Stat Lab 03/09/24 19:35 Completed CMP Stat Lab 03/09/24 19:35 Completed D-DIMER QUANTITATIVE Stat Lab 03/09/24 19:35 Completed NT PRO BNPII Stat Lab 03/09/24 19:35 Completed TROPONIN Q4H Lab 03/09/24 19:35 Completed TROPONIN Q4H Lab 03/10/24 03:45 Ordered Medication Summary Discontinued Medications Generic Name Dose Route Start Last Admin Trade Name Freq PRN Reason Stop Dose Admin Aspirin 324 mg 03/09/24 19:39 03/09/24 19:45 Aspirin 81 Mg Tab.Chew PO 03/09/24 19:40 324 mg STAT ONE Administration Aspirin Confirm 03/09/24 19:45 Aspirin 81 Mg Tab.Chew Administered 03/09/24 19:46 Dose 324 mg .ROUTE .STK-MED ONE Lab/Rad Data: Laboratory Result Diagrams 03/09/24 19:35 03/09/24 19:35 Laboratory Results 03/09/24 03/09/24 03/09/24 Range/Units 19:35 19:35 19:35 WBC (3.98-10.04) x10^3/uL RBC (3.93-5.22) x10^6/uL Hgb (11.2-15.7) g/dL Hct (34.1-44.9) % MCV (79.4-94.8) fL MCH (25.6-32.2) pg MCHC (32.2-35.5) g/dL RDW (11.7-14.4) % Plt Count (182-369) x10^3/uL MPV (9.4-12.3) fL Gran % (34.0-71.1) % Immature Gran % (Auto) (0.001-0.429) % Nucleat RBC Rel Count (0.00-0.2) % Eos # (Auto) (0.04-0.36) x10^3/uL Immature Gran # (Auto) (0.001-0.031) x10^3u/L Absolute Lymphs (auto) (1.18-3.74) x10^3/uL Absolute Monos (auto) (0.24-0.86) x10^3/uL Absolute Nucleated RBC (0.00-0.012) x10^3u/L Lymphocytes % (19.3-51.7) % Monocytes % (4.7-12.5) % Eosinophils % (0.7-5.8) % Basophils % (0.1-1.2) % Absolute Granulocytes (1.56-6.13) x10^3/uL Basophils # (0.01-0.08) x10^3/uL D-Dimer 0.19 (0.0-0.50) mg/L Sodium 142 (135-145) mmol/L Potassium 3.9 (3.5-5.1) mmol/L Chloride 107 (98-107) mmol/L Carbon Dioxide 26 (22-30) mmol/L Anion Gap 13.9 (5-15) MEQ/L BUN 14 (7-17) mg/dL Creatinine 0.65 (0.52-1.04) mg/dL Estimated GFR 107.2 ML/MIN Glucose 108 H (74-106) mg/dL Calcium 9.1 (8.4-10.2) mg/dL Total Bilirubin 0.30 (0.2-1.3) mg/dL AST 76 H (14-36) U/L ALT 70 H (0-35) U/L Alkaline Phosphatase 101 (38-126) U/L Troponin I < 0.012 (0.000-0.033) ng/mL NT-Pro-B Natriuret Pep 111 (<300) pg/mL Serum Total Protein 7.3 (6.3-8.2) g/dL Albumin 4.4 (3.5-5.0) g/dL / Range/Units 19:35 WBC 7.2 (3.98-10.04) x10^3/uL RBC 4.43 (3.93-5.22) x10^6/uL Hgb 15.2 (11.2-15.7) g/dL Hct 43.4 (34.1-44.9) % MCV 98.0 H (79.4-94.8) fL MCH 34.3 H (25.6-32.2) pg MCHC 35.0 (32.2-35.5) g/dL RDW 11.4 L (11.7-14.4) % Plt Count 344 (182-369) x10^3/uL MPV 9.8 (9.4-12.3) fL Gran % 51.8 (34.0-71.1) % Immature Gran % (Auto) 0.3 (0.001-0.429) % Nucleat RBC Rel Count 0.0 (0.00-0.2) % Eos # (Auto) 0.21 (0.04-0.36) x10^3/uL Immature Gran # (Auto) 0.02 (0.001-0.031) x10^3u/L Absolute Lymphs (auto) 2.66 (1.18-3.74) x10^3/uL Absolute Monos (auto) 0.48 (0.24-0.86) x10^3/uL Absolute Nucleated RBC 0.00 (0.00-0.012) x10^3u/L Lymphocytes % 36.9 (19.3-51.7) % Monocytes % 6.7 (4.7-12.5) % Eosinophils % 2.9 (0.7-5.8) % Basophils % 1.4 H (0.1-1.2) % Absolute Granulocytes 3.74 (1.56-6.13) x10^3/uL Basophils # 0.10 H (0.01-0.08) x10^3/uL D-Dimer (0.0-0.50) mg/L Sodium (135-145) mmol/L Potassium (3.5-5.1) mmol/L Chloride (98-107) mmol/L Carbon Dioxide (22-30) mmol/L Anion Gap (5-15) MEQ/L BUN (7-17) mg/dL Creatinine (0.52-1.04) mg/dL Estimated GFR ML/MIN Glucose (74-106) mg/dL Calcium (8.4-10.2) mg/dL Total Bilirubin (0.2-1.3) mg/dL AST (14-36) U/L ALT (0-35) U/L Alkaline Phosphatase (38-126) U/L Troponin I (0.000-0.033) ng/mL NT-Pro-B Natriuret Pep (<300) pg/mL Serum Total Protein (6.3-8.2) g/dL Albumin (3.5-5.0) g/dL - Progress Progress: improved Progress Note: 48-year-old female presents to our ED for evaluation of left-sided chest pain. D-dimer negative. Chest x-ray negative for acute findings. Initial troponin negative. EKG sinus rhythm. No STEMI. Patient due for second troponin. Patient states that she has obligations at home. She cannot stay for second troponin. Patient requesting discharge at this time. We will discharge patient home upon her request. Patient understands that she is at a higher risk of an IA. Patient has hypertension hypercholesterol patient is over 45 years old she is a current smoker and not taking any of her home medications as required. However in spite of her wrist patient requested to leave AGAINST MEDICAL ADVICE Patient is of sound mind. Patient is appropriate to make informed and independent medical decisions. Patient understands that leaving AGAINST MEDICAL ADVICE can result in delayed diagnosis, increased risk of morbidity, mortality, short and long-term disability including . In spite of these risks, sebas rios has decided to leave AGAINST MEDICAL ADVICE. Patient understands that she may return to our ED at any point if she reconsiders. Patient agrees to follow- up with her primary care doctor within 48 hours for reevaluation. Patient voices no other complaints or concerns at this time. We will release patient AGAINST MEDICAL ADVICE per their request. Complexity problem addressed is moderate acute complicated. No critical care time. Complex of data reviewed and analyzed is moderate. Test ordered chest reviewed results analyzed and correlated clinically with history and physical exam. Risk complication and or risk of morbidity/mortality patient management is low. Vital stable. Time spent to discharge patient AMA is approximately 10 minutes. Plan of care established upon patient's request. No social determinants of health present to impede follow-up. Portions of this note were created with voice recognition technology. There may be grammatical, spelling, punctuation or sound alike errors 03/09/24 22:16 03/09/24 22:22 Counseled pt/family regarding: lab results, diagnosis, need for follow-up, rad results - Departure Departure Disposition: AMA Clinical Impression: Chest pain, Abnormal EKG Condition: Stable Critical Care Time: No Referrals: [facility] [LOCATION] - Follow up/PCP as directed Additional Instructions: Discharge/Care Plan BROOKJOHNANHHER COLES was seen on 03/09/24 in the Emergency Room. The patient was counseled regarding Diagnosis,Lab results, Imaging studies, need for follow up and when to return to the Emergency Room. Prescriptions given: Discharge Note I have spoken with the patient and/or caregivers. I have explained the patient's condition, diagnosis and treatment plan based on the information available to me at this time. I have answered the patient's and/or caregiver's questions and addressed any concerns. The patient and/or caregivers have as good understanding of the patient's diagnosis, condition and treatment plan as can be expected at this point. The vital signs have been stable. The patient's condition is stable and appropriate for discharge from the emergency department. The patient will pursue further outpatient evaluation with the primary care physician or other designated or consulting physician as outlined in the discharge instructions. The patient and/or caregivers are agreeable to this plan of care and follow-up instructions have been explained in detail. The patient and/or caregivers have received these instruction. The patient/and or caregivers are aware that any significant change in condition or worsening of symptoms should prompt an immediate return to this or the closest emergency department or call 911.
[2024-03-09 20:15] LABS: ALBUMIN 4.4 g/dL (3.5-5.0); ANION GAP 13.9 MEQ/L (5-15); BILIRUBIN,TOTAL 0.3 mg/dL (0.2-1.3); Calcium 9.1 mg/dL (8.4-10.2); Creatinine 1 0.65 mg/dL (0.52-1.04); EST GLOMERULAR FILTRATION RATE 107.2 ML/MIN; Potassium 3.9 mmol/L (3.5-5.1); Total Protein 7.3 g/dL (6.3-8.2)
[2024-03-09 22:05] VITALS: BP 158/112; PULSE 68; RESP 17; O2SAT 98
--- NOTE | 2024-03-10 08:37 | XRAY ---
Indication: Chest pain. Comparison: March 05, 2022 Portable chest again demonstrates normal heart, lungs, and bony thorax with incidental left base calcified granuloma.
== END 2024-03-09 22:28 | disposition home or self-care (01) ==
LOC: ED 19:25
DX: R07.9 Chest pain, unspecified (principal); R94.31 Abnormal electrocardiogram [ECG] [EKG]
CPT/HCPCS: 36415; 71045; 80053; 83880; 84484; 85025; 85379; 93005; 93041; 94760; 99284; 99285; A9270-GY